=== PATIENT | male | born 1960 | race African-American/Black ===

== ENCOUNTER → 2017-07-04 | Outpatient (CLI) | payer OTHER | END | disposition home or self-care (01) | LOC: US 09:11 | DX: K76.0 Fatty (change of) liver, not elsewhere classified (principal); E78.4 Other hyperlipidemia; Z90.49 Acquired absence of other specified parts of digestive tract ==

== ENCOUNTER 2017-08-23 14:44 | Inpatient (IN) | payer OTHER, MEDICARE ==
[~2017-08-23] VITALS: Ht 177.8 cm; Wt 136.5 kg
[2017-08-23 14:45] VITALS: BP 127/80
[2017-08-23 15:07] LABS: BASO # 0.1 10*3/uL (0.0-0.1); BASO % 0.7 % (0.0-1.0); EOS # 0.1 10*3/uL (0.0-0.4); EOS % 1.3 % (1.0-4.0); HEMATOCRIT 34.1 % (42.0-52.0); HEMOGLOBIN 12.2 g/dl (14.0-18.0); LYMPH # 2.9 10*3/uL (1.3-4.4); LYMPH % 43.3 % (27.0-41.0); MEAN CELL VOLUME 93.7 fl (80.0-94.0); MEAN CORPUSCULAR HGB 33.5 pg (27.0-31.0); MEAN CORPUSCULAR HGB CONC 35.8 g/dl (33.0-37.0); MEAN PLATELET VOLUME 9.1 fl (9.6-12.3); MONO # 0.4 10*3/uL (0.1-1.0); MONO % 5.2 % (3.0-9.0); NEUT # 3.3 10*3/uL (2.3-7.9); NEUT % 49.4 % (47.0-73.0); PLATELET COUNT AUTOMATED 205 10*3/uL (130-400); RED BLOOD COUNT 3.64 10*6/uL (4.50-5.90); WHITE BLOOD COUNT 6.7 10*3/uL (4.8-10.8)
[2017-08-23 15:17] LABS: ACT PARTIAL THROMBO TIME 23.8 SECONDS (20.8-31.5)
[2017-08-23] MEDS ORDERED: REFRESH PLUS1 EACH OP (15:22)
[2017-08-23] MEDS ORDERED: VERAPAMIL HCL240 M1 PO (15:22)
[2017-08-23] MEDS ORDERED: CLARITIN10 MG PO (15:23)
[2017-08-23] MEDS ORDERED: BUPROPION HCL100 M2 PO (15:23)
[2017-08-23] MEDS ORDERED: DEPAKOTE500 M1 PO (15:23)
[2017-08-23] MEDS ORDERED: CYMBALTA60 MG PO (15:23)
[2017-08-23 15:25] LABS: ALBUMIN 3.5 gm/dl (3.1-4.5); ALKALINE PHOSPHATASE 122 U/L (45-117); BUN 16 mg/dl (7-24); CHLORIDE 100 mmol/L (98-107); CREATININE 1.05 mg/dL (0.70-1.30); POTASSIUM 3.5 mmol/L (3.5-5.1); SGOT/AST 67 IU/L (3-35); SGPT/ALT 65 U/L (12-78); SODIUM 137 mmol/L (136-145); TOTAL PROTEIN 7.4 gm/dL (6.4-8.2)
[2017-08-23] MEDS ORDERED: Motrin,Rufen800 MG PO (15:25)
[2017-08-23] MEDS ORDERED: LISINOPRIL20 MG PO (15:25)
[2017-08-23] MEDS ORDERED: OMEPRAZOLE20 M2 PO (15:26)
[2017-08-23] MEDS ORDERED: MULTIPLE VITAM1 EAC2 PO (15:26)
[2017-08-23] MEDS ORDERED: HYDR25T PO (15:26)
[2017-08-23] MEDS ORDERED: PERPHENAZINE4 M1 PO (15:27)
[2017-08-23] MEDS ORDERED: GLUCOTROL10 MG PO (15:27)
[2017-08-23] MEDS ORDERED: CHILDREN'S1000 UNIT PO (15:27)
[2017-08-23] MEDS ORDERED: METFORMIN1000 MG PO (15:27)
[2017-08-23] MEDS ORDERED: LANTUS SOL100 UNIT/1 SC (15:28)
[2017-08-23 15:43] LABS: TROPONIN I < 0.015 ng/ml (<0.045)
[2017-08-23 16:14] VITALS: BP 122/88
[2017-08-23 17:40] VITALS: BP 135/94
[2017-08-23] MEDS ORDERED: TAB-A-VITE-MIN1 EACH PO (18:18)
[2017-08-23] MEDS ORDERED: GLUCOSE4 GM PO (18:21)
[2017-08-23 20:00] VITALS: BP 136/89
[2017-08-24] VITALS: BP 143/78
[2017-08-24 07:27] LABS: BASO % 0.4 % (0.0-1.0); EOS # 0.1 10*3/uL (0.0-0.4); EOS % 1.5 % (1.0-4.0); HEMATOCRIT 35.8 % (42.0-52.0); HEMOGLOBIN 12.4 g/dl (14.0-18.0); LYMPH # 1.5 10*3/uL (1.3-4.4); LYMPH % 31.9 % (27.0-41.0); MEAN CELL VOLUME 96.2 fl (80.0-94.0); MEAN CORPUSCULAR HGB 33.3 pg (27.0-31.0); MEAN CORPUSCULAR HGB CONC 34.6 g/dl (33.0-37.0); MEAN PLATELET VOLUME 9.8 fl (9.6-12.3); MONO # 0.4 10*3/uL (0.1-1.0); MONO % 8.8 % (3.0-9.0); NEUT # 2.8 10*3/uL (2.3-7.9); NEUT % 57.2 % (47.0-73.0); PLATELET COUNT AUTOMATED 198 10*3/uL (130-400); RED BLOOD COUNT 3.72 10*6/uL (4.50-5.90); RED CELL DISTRI WIDTH 13.2 % (0-14.5); WHITE BLOOD COUNT 4.8 10*3/uL (4.8-10.8)
[2017-08-24 07:56] LABS: BUN 13 mg/dl (7-24); CHLORIDE 103 mmol/L (98-107); CHOLESTEROL 176 mg/dL (<200); CREATININE 1.03 mg/dL (0.70-1.30); HDL CHOLESTEROL 47 mg/dl (40-60); POTASSIUM 3.6 mmol/L (3.5-5.1); SODIUM 137 mmol/L (136-145); TRIGLYCERIDES 506 mg/dl (<150)
[2017-08-24 08:00] VITALS: BP 144/90
[2017-08-24 08:15] LABS: VITAMIN D, 25-HYDROXY 32.9 ng/mL (30-100)
[2017-08-24 08:24] LABS: ACT PARTIAL THROMBO TIME 22.7 SECONDS (20.8-31.5)
[2017-08-24 12:00] VITALS: BP 139/88
[2017-08-24 16:00] VITALS: BP 149/89
[2017-08-24] MEDS ORDERED: ATORVASTATIN CA20 M1 PO (16:46)
[2017-08-24] MEDS ORDERED: FENOFIBRATE160 MG PO (16:46)
[2017-08-24 20:00] VITALS: BP 123/64; BP 142/77
[2017-08-25] VITALS: BP 150/87
[2017-08-25 08:00] VITALS: BP 126/74
== END 2017-08-25 10:43 | disposition home or self-care (01) | DRG 312 ==
LOC: ED 14:44 → EDHOLD 16:05 → 4E 16:05
PROVIDERS: Emergency Medicine; Internal Medicine
DX: R55 Syncope and collapse (principal); E11.65 Type 2 diabetes mellitus with hyperglycemia; Z68.41 Body mass index [BMI] 40.0-44.9, adult; E66.01 Morbid (severe) obesity due to excess calories; D53.9 Nutritional anemia, unspecified; F10.920 Alcohol use, unspecified with intoxication, uncomplicated; F43.10 Post-traumatic stress disorder, unspecified; I10 Essential (primary) hypertension; R00.2 Palpitations; E78.5 Hyperlipidemia, unspecified; M79.7 Fibromyalgia; K58.9 Irritable bowel syndrome, unspecified; Z79.4 Long term (current) use of insulin; Z90.49 Acquired absence of other specified parts of digestive tract; Z87.891 Personal history of nicotine dependence; Z83.3 Family history of diabetes mellitus; Z82.49 Family history of ischemic heart disease and other diseases of the circulatory system; Z79.84 Long term (current) use of oral hypoglycemic drugs; Z79.899 Other long term (current) drug therapy

== ENCOUNTER 2018-07-02 11:17 | Emergency (ER) | payer OTHER ==
[~2018-07-02 11:17] MED LIST: ATORVASTATIN CA20 M1 PO; BUPROPION HCL100 M2 PO; CHILDREN'S1000 UNIT PO; CLARITIN10 MG PO; CYMBALTA60 MG PO; DEPAKOTE500 M1 PO; FENOFIBRATE160 MG PO; GLUCOSE4 GM PO; GLUCOTROL10 MG PO; HYDR25T PO; LANTUS SOL100 UNIT/1 SC; LISINOPRIL20 MG PO; METFORMIN1000 MG PO; MULTIPLE VITAM1 EAC2 PO; Motrin,Rufen800 MG PO; OMEPRAZOLE20 M2 PO; PERPHENAZINE4 M1 PO; REFRESH PLUS1 EACH OP; TAB-A-VITE-MIN1 EACH PO; VERAPAMIL HCL240 M1 PO
[2018-07-02 11:55] LABS: BASO % 0.4 % (0.0-1.0); EOS % 0.5 % (1.0-4.0); HEMATOCRIT 35.8 % (42.0-52.0); HEMOGLOBIN 12.2 g/dl (14.0-18.0); LYMPH # 1.3 10*3/uL (1.3-4.4); LYMPH % 16.5 % (27.0-41.0); MEAN CORPUSCULAR HGB 34.1 pg (27.0-31.0); MEAN CORPUSCULAR HGB CONC 34.1 g/dl (33.0-37.0); MEAN PLATELET VOLUME 9.2 fl (9.6-12.3); MONO # 0.8 10*3/uL (0.1-1.0); MONO % 9.2 % (3.0-9.0); NEUT # 5.9 10*3/uL (2.3-7.9); NEUT % 72.9 % (47.0-73.0); PLATELET COUNT AUTOMATED 191 10*3/uL (130-400); RED BLOOD COUNT 3.58 10*6/uL (4.50-5.90); RED CELL DISTRI WIDTH 12.8 % (0-14.5); WHITE BLOOD COUNT 8.1 10*3/uL (4.8-10.8)
[2018-07-02 12:17] LABS: BUN 12 mg/dl (7-24); CHLORIDE 100 mmol/L (98-107); CREATININE 1.03 mg/dL (0.70-1.30); POTASSIUM 3.8 mmol/L (3.5-5.1); SODIUM 134 mmol/L (136-145); URIC ACID 9.2 mg/dL (3.5-7.2)
[2018-07-02] MEDS ORDERED: INDOMETHACIN50 MG PO (13:34)
[2018-07-02] MEDS ORDERED: NORCO 10-325 T1 EACH PO (13:34)
== END 2018-07-02 13:50 | disposition home or self-care (01) ==
LOC: ED 11:17
PROVIDERS: Emergency Medicine
DX: M10.061 Idiopathic gout, right knee (principal); M79.7 Fibromyalgia; E11.9 Type 2 diabetes mellitus without complications; E78.5 Hyperlipidemia, unspecified; I10 Essential (primary) hypertension; E66.01 Morbid (severe) obesity due to excess calories; E44.1 Mild protein-calorie malnutrition; Z79.899 Other long term (current) drug therapy; Z79.84 Long term (current) use of oral hypoglycemic drugs; Z79.4 Long term (current) use of insulin; Z90.49 Acquired absence of other specified parts of digestive tract; Z87.891 Personal history of nicotine dependence

== ENCOUNTER → 2018-11-02 | Outpatient (CLI) | payer OTHER ==
[~2018-11-02] MED LIST changes: +INDOMETHACIN50 MG PO; +NORCO 10-325 T1 EACH PO
== END | disposition home or self-care (01) ==
LOC: US 10-18 07:34
DX: K76.0 Fatty (change of) liver, not elsewhere classified (principal); Z90.49 Acquired absence of other specified parts of digestive tract

== ENCOUNTER → 2020-01-17 | Outpatient (CLI) | payer OTHER | END | disposition home or self-care (01) | LOC: MRI 13:58 | PROVIDERS: ATTEND Nurse Practitioner Family | DX: M19.011 Primary osteoarthritis, right shoulder (principal); M75.51 Bursitis of right shoulder; M77.9 Enthesopathy, unspecified; M25.811 Other specified joint disorders, right shoulder ==